=== PATIENT | male | born 1985 | race Caucasian/White ===

== ENCOUNTER 2019-04-12 08:52 | Day surgery (SDC) | payer BC ==
[2019-04-12 09:47] VITALS: BMI 46.1
[2019-04-12 11:14] VITALS: TEMP 98.3
[2019-04-12 11:36] VITALS: PULSE 66
[2019-04-12 11:45] VITALS: BP 143/74
--- NOTE | 2019-04-15 16:24 | PATH ---
Surgical Pathology Report Patient Name: JEAN MARIE JOHNSON Med. Rec. #: [id number] /Age/Gender: 1985 (Age: 33) / M Account: [id number] Location: [facility]ENDOS[facility] Taken: 04/12/2019 Received: 04/12/2019 Reported: 04/15/2019 Physicians: Kaylie Lynn M.D. Specimen(s) Received RECTAL POLYP Clinical History Rectal bleeding, family history of colon cancer, screening Postoperative diagnosis: Rectal polyp, hemorrhoidal bleeding Final Diagnosis RECTUM POLYP, BIOPSY: HYPERPLASTIC POLYP. Electronically Signed Marilin Bell M.D. Gross Description Received in formalin, labeled "rectum polyp biopsy" is a iglesias, irregular portion of soft tissue measuring 0.3 cm. in greatest dimension. The specimen is submitted in toto in one cassette. DL/04/12/2019 saudi/04/12/2019
== END 2019-04-12 11:46 | disposition home or self-care (01) ==
LOC: JASU-ENDO 08:52
PROVIDERS: ATTEND Internal Medicine Gastroenterology
PROC: 0DBP8ZX Excision of Rectum, Via Natural or Artificial Opening Endoscopic, Diagnostic (ICD-10-PCS; principal; 2019-04-12 09:45)
DX: Z12.11 Encounter for screening for malignant neoplasm of colon (principal); K62.1 Rectal polyp; K64.8 Other hemorrhoids; K59.00 Constipation, unspecified; Z80.9 Family history of malignant neoplasm, unspecified; Z83.71 Family history of colonic polyps
CPT/HCPCS: 88305-TC